=== PATIENT | female | born 1940 | race Caucasian/White ===

== ENCOUNTER → 2023-12-26 09:05 | Outpatient (REF) | payer OTHER, SELFPAY ==
[2023-12-26 09:34] LABS: % Basophils 0.3 % (0-2); % Immature Granulocytes 0.6 % (0-0.5); % Lymphocytes 8.3 % (20.5-51.1); % Neutrophils 80.8 % (42.2-75.2); Absolute Eosinophils 0.2 10^3/uL (0-0.7); Absolute Immature Granulocytes 0.1 10^3/uL (0-0.05); Absolute Lymphocytes 1.2 10^3/uL (1.2-3.4); Absolute Monocytes 1.3 10^3/uL (0.1-0.6); Absolute Neutrophils 11.5 10^3/uL (1.4-6.5); Mean Corp Hgb Conc. 32.4 g/dL (33.0-37.0); Mean Corpuscular Hgb 27.4 pg (27.0-31.0); Mean Corpuscular Volume 84.6 fL (81.0-99.0); Mean Platelet Volume 10.1 fL (7.4-10.4); Nucleated Red Blood Cells % 0 %; Platelet Count 338 10^3/uL (130-400); Red Blood Cell Count 4.02 10^6/uL (4.20-5.40); Red Cell Dist. Width 13.8 % (11.5-14.5); White Blood Cell Count 14.3 10^3/uL (4.8-10.8)
[2023-12-26 09:53] LABS: ALT (SGPT) 20 U/L (0-35); AST (SGOT) 41 U/L (14-36); Albumin 2.7 g/dl (3.5-5.0); Alkaline Phosphatase 157 U/L (38-126); Blood Urea Nitrogen 29 mg/dl (7-17); Carbon Dioxide 29 mmol/L (22-30); Chloride 99 mmol/L (98-107); Glucose 141 mg/dl (70-99); Sodium 138 mmol/L (135-145); Total Bilirubin 0.9 mg/dl (0.2-1.3); Total Protein 6.2 g/dl (6.3-8.2); eGFR 37.33
[2023-12-26 10:01] LABS: Potassium 3.5 mmol/L (3.5-5.1)
== END ==
LOC: OLABWHC 09:05
PROVIDERS: ATTENDING PHYSICIAN Family Medicine
DX: J18.9 Pneumonia, unspecified organism (principal)
CPT/HCPCS: 36415; 80053; 85025

== ENCOUNTER → 2025-05-20 09:40 | Outpatient (REF) | payer OTHER, SELFPAY ==
[2025-05-20 10:03] LABS: Hematocrit 38.7 % (37.0-47.0); Hemoglobin 12.6 g/dL (12.0-16.0); Mean Corp Hgb Conc. 32.6 g/dL (33.0-37.0); Mean Corpuscular Volume 83.6 fL (81.0-99.0); Platelet Count 193 10^3/uL (130-400); Red Cell Dist. Width 14.8 % (11.5-14.5)
[2025-05-20 13:54] LABS: ALT (SGPT) 12 U/L (0-35); AST (SGOT) 22 U/L (14-36); Albumin 3.5 g/dl (3.5-5.0); Alkaline Phosphatase 84 U/L (38-126); Blood Urea Nitrogen 24 mg/dl (7-17); Calcium 9.3 mg/dl (8.4-10.2); Carbon Dioxide 29 mmol/L (22-30); Chloride 106 mmol/L (98-107); Glucose 62 mg/dl (70-99); Potassium 3.7 mmol/L (3.5-5.1); Sodium 142 mmol/L (135-145); Total Protein 6.7 g/dl (6.3-8.2); eGFR 55.55
== END ==
LOC: OLABWHC 09:40
PROVIDERS: ATTENDING PHYSICIAN Family Medicine
DX: E11.649 Type 2 diabetes mellitus with hypoglycemia without coma (principal); I50.30 Unspecified diastolic (congestive) heart failure
CPT/HCPCS: 36415; 80053; 85027